=== PATIENT | female | born 1985 | race Asian ===

== ENCOUNTER → 2016-11-16 | Outpatient (CLI) | payer OTHER ==
[~2016-11-16] MED LIST: CALNTAB PO; DOXY10TA PO
[2016-11-16 07:48] LABS: BACTERIA, URINE RARE /hpf; BLOOD, URINE NEG (NEG); COMMENT (UR) CULT NOT INDICATED; CULTURE IF INDICATED CULT NOT INDICATED; GLUCOSE,URINE NEG (NEG); KETONE, URINE NEG (NEG); NITRITE,URINE NEG (NEG); PH, URINE 7.5 (5.0-8.5); SQUAMOUS EPITHELIAL CELL URINE <1 /hpf (0-5); URINE COLOR YELLOW (YELLW/STRAW)
[2016-11-16 07:50] LABS: AUTOMATED NEUTROPHIL # 9.6 TH/MM3 (1.8-7.7); BASOPHIL # 0.1 TH/MM3 (0-0.2); EOSINOPHIL # 0.2 TH/MM3 (0-0.4); EOSINOPHIL % 1.3 % (0.0-4.0); LYMPH % 19.5 % (9.0-44.0); LYMPHOCYTE # 2.6 TH/MM3 (1.0-4.8); MEAN CELL VOLUME 62.3 FL (80.0-100.0); MEAN CORPUSCULAR HEMOGLOBIN 19.7 PG (27.0-34.0); MEAN CORPUSCULAR HGB CONC 31.7 % (32.0-36.0); MONO % 5.1 % (0.0-8.0); NEUT % 73.1 % (16.0-70.0); PLATELET COUNT 300 TH/MM3 (150-450); RED BLOOD COUNT 5.94 MIL/MM3 (4.00-5.30); RED CELL DISTRIBUTION WIDTH 14.8 % (11.6-17.2); WHITE BLOOD COUNT 13.1 TH/MM3 (4.0-11.0)
[2016-11-16 08:11] LABS: HEMO FLAGS AUTO DIFF
[2016-11-16 08:19] LABS: RUBELLA IGG ANTIBODY 91.2 IU/mL (10.0-500.0); RUBELLA STATUS IMMUNE (IMMUNE)
[2016-11-16 09:11] LABS: OVALOCYTES 1+ (NORMAL); PLATELET ESTIMATE SMEAR NORMAL (NORMAL); PLATELET MORPHOLOGY ENLARGED (NORMAL); SCAN/DIFF AUTO DIFF CONFIRMED
[2016-11-16 14:45] LABS: RAPID PLASMA REAGIN SCREEN NON-REACTIVE (NON-REACTVE)
== END ==
LOC: EDBD → CLAB 07:10
PROVIDERS: ATTEND Family Medicine
DX: Z34.90 Encounter for supervision of normal pregnancy, unspecified, unspecified trimester (principal)
CPT/HCPCS: 36415; 81001; 83020; 85025; 86592; 86703; 86762; 86850; 86900; 86901; 87340

== ENCOUNTER → 2016-11-18 | Outpatient (CLI) | payer OTHER | LOC: EDBD → HPND 13:26 | PROVIDERS: ATTEND Family Medicine | DX: Z36 Encounter for antenatal screening of mother (principal); Z3A.09 9 weeks gestation of pregnancy | CPT/HCPCS: 76801 ==

== ENCOUNTER → 2016-12-15 | Outpatient (CLI) | payer OTHER | LOC: HPND 10:45 | PROVIDERS: ATTEND Family Medicine | DX: Z36 Encounter for antenatal screening of mother (principal) | CPT/HCPCS: 36416; 76813 ==

== ENCOUNTER → 2017-01-19 | Outpatient (CLI) | payer OTHER | LOC: HPND 09:35 | PROVIDERS: ATTEND Family Medicine | DX: O28.3 Abnormal ultrasonic finding on antenatal screening of mother (principal); Z3A.18 18 weeks gestation of pregnancy | CPT/HCPCS: 36415; 76811 ==

== ENCOUNTER 2017-06-13 09:54 | Emergency (ER) | payer BC ==
[~2017-06-13 09:54] MED LIST changes: -DOXY10TA PO; +FERR325T72 PO
--- NOTE | 2017-06-13 11:24 | PD ---
HPI Chief Complaint Contractions Date Seen: Jun 13, 2017 Time Seen: 10:45 (Neeraj Bauer MD R2) Travel History International Travel<30 Days: No Contact w/Intl Traveler<30Days: No Known Affected Area: No (Neeraj Bauer MD R2) History of Present Illness HPI 33-year-old at 39 weeks gestation presenting with contractions starting since 3 AM this morning. At that time, there were moderate intensity at about every 5 minutes apart. They have not worsened in intensity or shortened interval , but they have persisted until time of presentation, prompting her to seek care. She denies vaginal bleeding, contractions, leakage of fluid. Endorses movement. Denies chest pain, shortness of breath, dysuria, nausea/ vomiting. Endorses urinary frequency since approximately 38 weeks gestation. Last seen in clinic on 06/03/[address] Lakeisha Peralta; at that time, her cervix was 0/0/-3. (Neeraj Bauer MD R2) History Past Medical History Narrative Medical Migraines N/V of (Neeraj Bauer MD R2) Obstetric History Obstetric History G1 (Neeraj Bauer MD R2) Past Surgical History Surgical History: No Previous Surgery (Neeraj Bauer MD R2) Family History Family History: Negative (Neeraj Bauer MD R2) Social History Alcohol Use: No Tobacco Use: No Substance Abuse: No (Neeraj Bauer MD R2) Allergies-Medications (Allergen,Severity, Reaction): Coded Allergies: No Known Allergies (Unverified , 06/14/17) Home Meds Active Scripts Ferrous Gluconate 325 Mg [id number] Mg PO DAILY #30 TAB Ref 3 Prov:Cleveland Peralta MD R3 05/19/17 Vitamin (Calna)1 Tab Tab1 Tab PO DAILY #30 TAB Ref 11 Take one tab by mouth once daily with food. Prov:Lakeisha Peralta MD R2 11/11/16 Review of Systems Except as stated in HPI: all other systems reviewed are Neg (Neeraj Bauer MD R2) Physical Exam Narrative GENERAL: Well-nourished, well-developed patient. SKIN: Warm and dry. HEAD: Normocephalic and atraumatic. EYES: No scleral icterus. No injection or drainage. ENT: No nasal drainage noted. Mucous membranes pink. Airway patent. CARDIOVASCULAR: Regular rate and rhythm without murmurs, gallops, or rubs. RESPIRATORY: Breath sounds equal bilaterally. No accessory muscle use. ABDOMEN/GI: Abdomen soft, non-tender, no rebound, no guarding GENITOURINARY: Cervix: posterior Dilation: 1 Effacement: 80 Presentation: -2 Membranes: intact Contractions: irregular every 3-7 mins FHT's: Category: 1 Baseline: 130 Reactive: Y Variability: moderate Decels: N EXTREMITIES: No cyanosis or edema. NEUROLOGICAL: Awake and alert. Motor and sensory grossly within normal limits. Normal speech. (Neeraj Bauer MD R2) Data Data Orders Vital Signs (Adult) .ON ADMISSION (06/13/17 10:41) ^ Labor Status (06/13/17 10:41) ^ Non Stress Test (06/13/17 10:41) ^ Hydration (06/13/17 10:41) (Neeraj Bauer MD R2) MDM Medical Record Reviewed: Yes Narrative Course / MDM 33-year-old at 39 weeks gestation presenting with false labor #1 IUP Category 1 tracing, reassuring #2 GBS positive #3 false labor after 37 complete weeks gestation Adry regularly on monitor, but has not made any cervical change. Pain not severe according to patient. Could be very early labor or false labor - Tylenol as needed for pain - Counseling on early labor signs and when to return to the ER #4 elevated blood pressure reading Initial blood pressures in OB ER were in the 150s over 90s. Came down spontaneously to 130s over 70s to 80s. - Patient instructed to contact [facility] for follow-up in 48 hours either with nurse visit or physician appointment dw Dr. Musa (Neeraj Bauer MD R2) Diagnosis Diagnosis: Primary Impression: False labor after 37 completed weeks of gestation Disposition: 01 DISCHARGE HOME Condition: Good Patient Instructions: Early Labor Signs (ED) Collaborating MD Comments Patient was evaluated and discussed with resident team. Latent labor, patient will return with worsening contractions. (Bhargavi Musa MD) Neeraj Bauer MD R2 Jun 13, 2017 11:24 Bhargavi Musa MD Jun 15, 2017 10:49
[2017-06-13 12:28] LABS: BACTERIA, URINE RARE /hpf; BLOOD, URINE NEG (NEG); COMMENT (UR) CULT NOT INDICATED; CULTURE IF INDICATED CULT NOT INDICATED; GLUCOSE,URINE NEG (NEG); KETONE, URINE NEG (NEG); NITRITE,URINE NEG (NEG); PH, URINE 6.5 (5.0-8.5); SQUAMOUS EPITHELIAL CELL URINE 1 /hpf (0-5); URINE COLOR YELLOW (YELLW/STRAW)
== END 2017-06-13 11:45 | disposition home or self-care (01) ==
LOC: HOBED 09:54
DX: O47.1 False labor at or after 37 completed weeks of gestation (principal); Z3A.39 39 weeks gestation of pregnancy
CPT/HCPCS: 59025; 81001

== ENCOUNTER 2017-06-14 07:59 | Inpatient (IN) | payer BC ==
[2017-06-14] VITALS (105 sets, daily range): BP systolic 110–165; BP diastolic 43–106; PULSE 67–107; RESP 18–20; TEMP 98–99.4
[2017-06-14] MEDS ORDERED: LACTATED RINGER'S 1000 ML INJ 1,000 ML IV PRN (08:59)
[2017-06-14] MEDS ORDERED: ONDANSETRON HCL 4 MG/2 ML VIAL IV PRN (09:00)
[2017-06-14] MEDS ORDERED: OXYTOCIN 30 UNITS-500ML PREMIX 500 ML IV ONE (09:00)
[2017-06-14] MEDS ORDERED: MINERAL OIL 10 ML VIAL TOPICAL PRN (09:00)
[2017-06-14] MEDS ORDERED: LIDOCAINE HCL 1% 50 ML VIAL I-DERMAL PRN (09:00)
[2017-06-14] MEDS ORDERED: SODIUM CHLORID 0.9% 500 ML INJ 500 ML IV PRN (09:00)
[2017-06-14] MEDS ORDERED: PENICILLIN G POTASSIUM INJ 5,000,000 UNITS in SODIUM CHLORIDE 0.9% INJ 100 ML IV ONE (09:00)
[2017-06-14] MEDS ORDERED: CITRIC ACID-SODIUM CITRATE LIQ 30 ML UDC PO SCH (09:00)
[2017-06-14] MEDS ORDERED: LIDOCAINE HCL 1% 50 ML VIAL INFIL PRN (09:00)
--- NOTE | 2017-06-14 09:12 | PD ---
HPI Chief Complaint Contractions Date Seen: Jun 14, 2017 Time Seen: 08:45 (Sung Yoder MD R1) Travel History International Travel<30 Days: No Contact w/Intl Traveler<30Days: No (Sung Yoder MD R1) History of Present Illness HPI 33 year old at 39 and 1/7 weeks who came in complaining of intermittent contractions for the past 2 days. The contractions have increased in intensity and frequency, currently occurring every 3-4 minutes. States there is normal baby movement. She denies leakage of fluid and vaginal bleeding. She denies fevers, chills, n/v, headaches, blurry vision, chest pain, abdominal pain. Para: 0 : 1 (Sung Yoder MD R1) History Past Medical History Medical History: Denies Significant Hx (Sung Yoder MD) Past Surgical History Surgical History: No Previous Surgery (Sung Yoder MD) Allergies-Medications (Allergen,Severity, Reaction): Coded Allergies: No Known Allergies (Unverified , 06/14/17) Home Meds Active Scripts Ferrous Gluconate 325 Mg [id number] Mg PO DAILY #30 TAB Ref 3 Prov:Cleveland Peralta MD R3 05/19/17 Vitamin (Calna)1 Tab Tab1 Tab PO DAILY #30 TAB Ref 11 Take one tab by mouth once daily with food. Prov:Lakeisha Peralta MD R2 11/11/16 Review of Systems General / Constitutional: No: Fever, Chills Eyes: No: Blurred Vision, Visual changes, Pain HENT: No: Headaches, Vertigo Cardiovascular: No: Chest Pain or Discomfort, Palpitations Respiratory: No: Cough, Short of Breath, Wheezing Gastrointestinal: No: Nausea, Vomiting, Diarrhea, Abdominal Pain Genitourinary: No: Dysuria, Hematuria Musculoskeletal: No: Weakness, Pain Skin: No Rash, No Itching Neurologic: No: Weakness, Dizziness Psychiatric: No: Anxiety, Depression (Sung Yoder MD R1) Physical Exam Narrative GENERAL: Well-nourished, well-developed patient. SKIN: Warm and dry. HEAD: Normocephalic and atraumatic. EYES: No scleral icterus. No injection or drainage. ENT: No nasal drainage noted. Mucous membranes pink. Airway patent. NECK: Supple, trachea midline. No JVD. CARDIOVASCULAR: Regular rate and rhythm without murmurs, gallops, or rubs. RESPIRATORY: Breath sounds equal bilaterally. No accessory muscle use. ABDOMEN/GI: Abdomen soft, non-tender, bowel sounds present, no rebound, no guarding GENITOURINARY: External Genitalia: intact and normal in appearance Cervix: Posterior Dilatation: 4 Effacement: 80 Station: -2 Membranes: Intact Uterine Contractions: 3-4 minutes FHT's: Category: 1 Baseline: 145 Reactive: Y Variability: moderate Decels: N EXTREMITIES: No cyanosis or edema. BACK: Nontender without obvious deformity. No CVA tenderness. NEUROLOGICAL: Awake and alert. Motor and sensory grossly within normal limits. Five out of 5 muscle strength in all muscle groups. Normal speech. (Sung Yoder MD R1) Data Data Orders Vital Signs (Adult) .ON ADMISSION (06/14/17 08:59) ^ Labor Status (06/14/17 08:59) ^ Non Stress Test (06/14/17 08:59) ^ Hydration (06/14/17 08:59) Admit To Inpatient (06/14/17 ) Code Status (06/14/17 08:59) Vital Signs (Adult) .Per protocol (06/14/17 08:59) Activity Oob Ad Kerry (06/14/17 08:59) Heart (06/14/17 08:59) Amnioinfusion (06/14/17 08:59) Urinary Catheter Management .ONCE (06/14/17 08:59) Diet Liquid (06/14/17 Breakfast) Lactated Ringer's 1000 Ml Inj (Lr 1000 M (06/14/17 08:59) Lactated Ringer's 1000 Ml Inj (Lr 1000 M (06/14/17 08:59) Sodium Chlorid 0.9% 500 Ml Inj (Ns 500 M (06/14/17 09:00) Sodium Chlor 0.9% 1000 Ml Inj (Ns 1000 M (06/14/17 09:19) Lidocaine 1% Inj (50 Ml) (Xylocaine 1% I (06/14/17 09:00) Citric Acid-Sodium Citrate Liq (Bicitra (06/14/17 09:00) Ondansetron Inj (Zofran Inj) (06/14/17 09:00) Fentanyl Inj (Fentanyl Inj) (06/14/17 09:00) Fentanyl Inj (Fentanyl Inj) (06/14/17 09:00) Penicillin G Potassium Inj (Pfizerpen-G (06/14/17 09:00) Penicillin G Potassium Inj (Pfizerpen-G (06/14/17 13:00) Complete Blood Count With Diff (06/14/17 08:59) Hold Clot (06/14/17 08:59) Abo/Rh Blood Type (06/14/17 08:59) Urinalysis - C+S If Indicated (06/14/17 08:59) Resp Oxygen Non Rebreathe Mask (06/14/17 ) ^ Epidural / Intrathecal Infus (06/14/17 08:59) Oxytocin 30 Units-500ml Premix (Pitocin (06/14/17 09:00) Lidocaine 1% Inj (50 Ml) (Xylocaine 1% I (06/14/17 09:00) Light Mineral Oil (Muri-Lube Oil) (06/14/17 09:00) Inpatient Certification (06/14/17 ) Ob (2e) Additional Admit Info (06/14/17 09:01) (Sung Yoder MD R1) MDM Narrative Course / MDM 33 year old who presented with increasing contraction strength and frequency Contractions during /Labor - Expectant delivery, Category 1 tracing reassuring GBS + - Penicillin per protocol (Sung Yoder MD R1) Collaborating MD Comments Discussed patient care, management, and admission for labor. (Bhargavi Musa MD) Sung Yoder MD R1 Jun 14, 2017 09:12 Bhargavi Musa MD Jun 15, 2017 11:06
[2017-06-14] MEDS ORDERED: SODIUM CHLOR 0.9% 1000 ML INJ 1,000 ML IV PRN (09:19)
[2017-06-14] MEDS: LACTATED RINGER'S 1000 ML INJ 1,000 ML IV SCH ×3 (09:22→16:31)
[2017-06-14 09:38] LABS: AUTOMATED NEUTROPHIL # 10.7 TH/MM3 (1.8-7.7); BASOPHIL # 0.1 TH/MM3 (0-0.2); BASOPHIL % 0.9 % (0.0-2.0); EOSINOPHIL # 0.2 TH/MM3 (0-0.4); EOSINOPHIL % 1.2 % (0.0-4.0); HEMATOCRIT 37.5 % (35.0-46.0); LYMPH % 18.4 % (9.0-44.0); LYMPHOCYTE # 2.7 TH/MM3 (1.0-4.8); MEAN CELL VOLUME 66.7 FL (80.0-100.0); MEAN CORPUSCULAR HEMOGLOBIN 20.7 PG (27.0-34.0); MONO % 6.3 % (0.0-8.0); NEUT % 73.2 % (16.0-70.0); PLATELET COUNT 128 TH/MM3 (150-450); RED BLOOD COUNT 5.62 MIL/MM3 (4.00-5.30); RED CELL DISTRIBUTION WIDTH 15.9 % (11.6-17.2); WHITE BLOOD COUNT 14.7 TH/MM3 (4.0-11.0)
[2017-06-14 09:47] LABS: BLOOD, URINE NEG (NEG); COMMENT (UR) CULT NOT INDICATED; CULTURE IF INDICATED CULT NOT INDICATED; GLUCOSE,URINE NEG (NEG); KETONE, URINE NEG (NEG); NITRITE,URINE NEG (NEG); PH, URINE 6.5 (5.0-8.5); SQUAMOUS EPITHELIAL CELL URINE 4 /hpf (0-5); URINE COLOR YELLOW (YELLW/STRAW)
[2017-06-14 10:16] LABS: HEMO FLAGS AUTO DIFF
[2017-06-14 10:19] LABS: OVALOCYTES 1+ (NORMAL)
[2017-06-14 10:20] LABS: PLATELET ESTIMATE SMEAR LOW (NORMAL); PLATELET MORPHOLOGY ENLARGED (NORMAL); SCAN/DIFF AUTO DIFF CONFIRMED
--- NOTE | 2017-06-14 10:46 | HHI.HP ---
History & Physical H&P HPI HPI Chief Complaint Contractions Date Seen: Jun 14, 2017 Time Seen: 08:45 Travel History International Travel<30 Days: No Contact w/Intl Traveler<30Days: No History of Present Illness HPI 33 year old at 39 and 1/7 weeks who came in complaining of intermittent contractions for the past 2 days. The contractions have increased in intensity and frequency, currently occurring every 3-4 minutes. States there is normal baby movement. She denies leakage of fluid and vaginal bleeding. She denies fevers, chills, n/v, headaches, blurry vision, chest pain, abdominal pain. Para: 0 : 1 History (Limited) History Past Medical History Medical History: Denies Significant Hx Past Surgical History Surgical History: No Previous Surgery Allergies-Medications Allergies-Medications (Allergen,Severity, Reaction): Coded Allergies: No Known Allergies (Unverified , 06/14/17) Home Meds Active Scripts Ferrous Gluconate 325 Mg [id number] Mg PO DAILY #30 TAB Ref 3 Prov:Cleveland Peralta MD R3 05/19/17 Vitamin (Calna)1 Tab Tab1 Tab PO DAILY #30 TAB Ref 11 Take one tab by mouth once daily with food. Prov:Lakeisha Peralta MD R2 11/11/16 ROS Review of Systems General / Constitutional: No: Fever, Chills Eyes: No: Blurred Vision, Visual changes, Pain HENT: No: Headaches, Vertigo Cardiovascular: No: Chest Pain or Discomfort, Palpitations Respiratory: No: Cough, Short of Breath, Wheezing Gastrointestinal: No: Nausea, Vomiting, Diarrhea, Abdominal Pain Genitourinary: No: Dysuria, Hematuria Musculoskeletal: No: Weakness, Pain Skin: No Rash, No Itching Neurologic: No: Weakness, Dizziness Psychiatric: No: Anxiety, Depression Physical Exam Physical Exam Narrative GENERAL: Well-nourished, well-developed patient. SKIN: Warm and dry. HEAD: Normocephalic and atraumatic. EYES: No scleral icterus. No injection or drainage. ENT: No nasal drainage noted. Mucous membranes pink. Airway patent. NECK: Supple, trachea midline. No JVD. CARDIOVASCULAR: Regular rate and rhythm without murmurs, gallops, or rubs. RESPIRATORY: Breath sounds equal bilaterally. No accessory muscle use. ABDOMEN/GI: Abdomen soft, non-tender, bowel sounds present, no rebound, no guarding GENITOURINARY: External Genitalia: intact and normal in appearance Cervix: Posterior Dilatation: 4 Effacement: 80 Station: -2 Membranes: Intact Uterine Contractions: 3-4 minutes FHT's: Category: 1 Baseline: 145 Reactive: Y Variability: moderate Decels: N EXTREMITIES: No cyanosis or edema. BACK: Nontender without obvious deformity. No CVA tenderness. NEUROLOGICAL: Awake and alert. Motor and sensory grossly within normal limits. Five out of 5 muscle strength in all muscle groups. Normal speech. Data Data Data Orders Vital Signs (Adult) .ON ADMISSION (06/14/17 08:59) ^ Labor Status (06/14/17 08:59) ^ Non Stress Test (06/14/17 08:59) ^ Hydration (06/14/17 08:59) Admit To Inpatient (06/14/17 ) Code Status (06/14/17 08:59) Vital Signs (Adult) .Per protocol (06/14/17 08:59) Activity Oob Ad Kerry (06/14/17 08:59) Heart (06/14/17 08:59) Amnioinfusion (06/14/17 08:59) Urinary Catheter Management .ONCE (06/14/17 08:59) Diet Liquid (06/14/17 Breakfast) Lactated Ringer's 1000 Ml Inj (Lr 1000 M (06/14/17 08:59) Lactated Ringer's 1000 Ml Inj (Lr 1000 M (06/14/17 08:59) Sodium Chlorid 0.9% 500 Ml Inj (Ns 500 M (06/14/17 09:00) Sodium Chlor 0.9% 1000 Ml Inj (Ns 1000 M (06/14/17 09:19) Lidocaine 1% Inj (50 Ml) (Xylocaine 1% I (06/14/17 09:00) Citric Acid-Sodium Citrate Liq (Bicitra (06/14/17 09:00) Ondansetron Inj (Zofran Inj) (06/14/17 09:00) Fentanyl Inj (Fentanyl Inj) (06/14/17 09:00) Fentanyl Inj (Fentanyl Inj) (06/14/17 09:00) Penicillin G Potassium Inj (Pfizerpen-G (06/14/17 09:00) Penicillin G Potassium Inj (Pfizerpen-G (06/14/17 13:00) Complete Blood Count With Diff (06/14/17 08:59) Hold Clot (06/14/17 08:59) Abo/Rh Blood Type (06/14/17 08:59) Urinalysis - C+S If Indicated (06/14/17 08:59) Resp Oxygen Non Rebreathe Mask (06/14/17 ) ^ Epidural / Intrathecal Infus (06/14/17 08:59) Oxytocin 30 Units-500ml Premix (Pitocin (06/14/17 09:00) Lidocaine 1% Inj (50 Ml) (Xylocaine 1% I (06/14/17 09:00) Light Mineral Oil (Muri-Lube Oil) (06/14/17 09:00) Inpatient Certification (06/14/17 ) Ob (2e) Additional Admit Info (06/14/17 09:01) MDM MDM Narrative Course / MDM 33 year old who presented with increasing contraction strength and frequency Contractions during /Labor - Expectant delivery, Category 1 tracing reassuring GBS + - Penicillin per protocol Sung Yoder MD R1 Jun 14, 2017 10:46 Uterine contractions during Additional Impression: Group B streptococcal infection during Sung Yoder MD R1 Jun 14, 2017 10:46
--- NOTE | 2017-06-14 11:05 | PD.LABORPN ---
Subjective Subjective Patient feeling contractions every 3-4 minutes, pain controlled now with Fentanyl, will want epidural. Intact membranes at this time. Cat 1 tracing, SBP 140s. No concerns for patient or her . Objective Vital Signs Vital Signs Date Time Temp Pulse Resp B/P Pulse Ox O2 Delivery O2 Flow Rate FiO2 06/14/17 09:35 76 18 156/93 06/14/17 09:31 77 Objective Pelvic Exam: Cervix: 4-5cm/90/0 Presentation: vertex Membranes: AROM @ 1041 lightly meconium stained fluid Uterine Contractions: q3min FHT's: Category: 1 Baseline:140s Reactive: 160 Variability: mod Decels: absent Assessment/Plan Problem List: (1) Group B streptococcal infection during (2) with 39 completed weeks gestation Assessment and Plan 33-year-old at 39 and 1/7 weeks gestation who presents to the ED in labor. Intrauterine : Expect vaginal delivery, Category 1 tracing reassuring AROM 1041 today, light meconium stained CTX spontaneously at this time, will monitor, start Pitocin with goal CTX approx q 3 min Fentanyl IV/epidural for pain CBC, UA within normal limits. Type and screen done labs reviewed, remarkable for GBS POSITIVE. Routine intrapartum care Monitor heart tones Thickened nuchal fold Last documented december 2016, did not get recommended f/u echo/US due to insurance issues Cell free DNA showed no increased risk of Trisomy 21, 18, 13 Patient did not get amniocentesis for confirmation monitoring reassuring at this time, will monitor Baby may require Echo if initial physical exam abnormal GBS POSITIVE: PCN G per protocol Lakeisha Peralta MD R2 Jun 14, 2017 11:05
[2017-06-14] MEDS ORDERED: OXYTOCIN 30 UNITS-500ML PREMIX 500 ML IV SCH (11:15)
[2017-06-14] MEDS ORDERED: fentaNYL 2MCG-BUPIV 0.125% INJ 100 ML ONE (12:17)
[2017-06-14] MEDS: PENICILLIN G POTASSIUM INJ 2,500,000 UNITS in SODIUM CHLORIDE 0.9% INJ 100 ML IV SCH ×3 (13:25→22:10)
[2017-06-14] MEDS ORDERED: DO NOT ADMINISTER ANTICOAGULANTS PRN (13:30)
[2017-06-14] MEDS ORDERED: ePHEDrine/NS 25 MG/5 ML SYR IV PRN (13:30)
[2017-06-14] MEDS ORDERED: fentaNYL 2MCG-BUPIV 0.125% 100 ML EPIDURAL SCH (13:30)
[2017-06-14] MEDS ORDERED: NO SYSTEM NARCOTICS PRN (13:30)
--- NOTE | 2017-06-14 15:59 | PD.LABORPN ---
Subjective Subjective Patient resting comfortably, had epidural placed. PCN #2 was given. No concerns reported per FOB who is at bedside. Pit at 4 Objective Vital Signs Vital Signs Date Time Temp Pulse Resp B/P Pulse Ox O2 Delivery O2 Flow Rate FiO2 06/14/17 15:45 18 06/14/17 15:40 95 06/14/17 15:35 83 06/14/17 15:30 84 114/80 06/14/17 15:30 94 06/14/17 15:15 98.5 06/14/17 15:15 18 06/14/17 15:10 91 06/14/17 15:05 95 06/14/17 15:00 90 133/88 06/14/17 15:00 90 06/14/17 14:45 99 06/14/17 14:40 79 06/14/17 14:35 89 06/14/17 14:30 95 06/14/17 14:30 79 114/74 06/14/17 14:29 78 128/80 06/14/17 14:28 18 06/14/17 14:25 82 06/14/17 14:20 84 06/14/17 14:15 87 06/14/17 14:10 90 06/14/17 14:05 78 06/14/17 14:00 74 134/97 06/14/17 14:00 75 06/14/17 13:55 76 06/14/17 13:50 76 06/14/17 13:45 86 139/87 06/14/17 13:45 78 06/14/17 13:40 71 06/14/17 13:35 69 06/14/17 13:30 70 06/14/17 13:30 73 144/92 06/14/17 13:25 80 06/14/17 13:25 18 06/14/17 13:21 98.1 06/14/17 13:21 18 06/14/17 13:20 72 06/14/17 13:15 77 06/14/17 13:15 76 139/93 06/14/17 13:10 73 06/14/17 13:05 78 06/14/17 13:05 75 136/89 06/14/17 13:00 80 06/14/17 13:00 77 138/90 06/14/17 12:55 75 149/90 06/14/17 12:55 78 06/14/17 12:55 18 06/14/17 12:50 83 06/14/17 12:50 84 148/87 06/14/17 12:45 80 152/102 06/14/17 12:40 85 139/90 06/14/17 12:40 83 06/14/17 12:35 89 162/103 06/14/17 12:35 88 06/14/17 12:30 87 06/14/17 12:27 81 165/96 06/14/17 12:25 91 06/14/17 11:58 76 149/91 06/14/17 11:57 19 06/14/17 11:35 18 06/14/17 11:34 74 155/74 06/14/17 11:33 98.0 06/14/17 10:45 18 06/14/17 10:36 67 147/85 06/14/17 09:35 76 18 156/93 06/14/17 09:31 77 Objective Pelvic Exam @ 1540 Cervix: 6/80/-1 Presentation: vertex Membranes: AROM @ 1041 lightly meconium stained fluid Uterine Contractions: q3min FHT's: Category: 1 Baseline:140s Reactive: 160 Variability: mod Decels: absent Assessment/Plan Problem List: (1) Group B streptococcal infection during (2) with 39 completed weeks gestation Assessment and Plan Intrauterine : Expect vaginal delivery, Category 1 tracing reassuring AROM 1041 today, light meconium stained CTX q2-3 min now Cervix changing slowing, last check ~4pm will recheck if indication or in 2hr Pitocin at 12/03/29, titrate to goal CTX approx q 2-3 min Epidural for pain CBC, UA within normal limits. Type and screen done labs reviewed, remarkable for GBS POSITIVE. Routine intrapartum care Monitor heart tones Thickened nuchal fold: Last documented December 2016, did not get recommended f/u echo/US due to insurance issues Cell free DNA showed no increased risk of Trisomy 21, 18, 13 Patient did not get amniocentesis for confirmation monitoring reassuring at this time, will monitor Baby may require 2D Echo if initial physical exam/VS abnormal GBS POSITIVE: PCN G per protocol, first dose at 0922 today Lakeisha Peralta MD R2 Jun 14, 2017 15:59
--- NOTE | 2017-06-14 17:54 | PD.LABORPN ---
Subjective Subjective Patient is feeling uncomfortable with contractions and feeling pressure in the lower abdomen. She has no other complaints. Pit still going, now at 8 Objective Vital Signs Vital Signs Date Time Temp Pulse Resp B/P Pulse Ox O2 Delivery O2 Flow Rate FiO2 06/14/17 17:10 91 06/14/17 17:05 93 06/14/17 17:00 92 142/84 06/14/17 17:00 93 06/14/17 16:37 98.5 06/14/17 16:35 130/82 06/14/17 16:15 18 06/14/17 16:10 91 06/14/17 16:05 91 06/14/17 16:01 85 143/97 06/14/17 16:00 95 06/14/17 15:45 18 06/14/17 15:40 95 06/14/17 15:35 83 06/14/17 15:30 84 114/80 06/14/17 15:30 94 06/14/17 15:15 98.5 06/14/17 15:15 18 06/14/17 15:10 91 06/14/17 15:05 95 06/14/17 15:00 90 133/88 06/14/17 15:00 90 06/14/17 14:45 99 06/14/17 14:40 79 06/14/17 14:35 89 06/14/17 14:30 95 06/14/17 14:30 79 114/74 06/14/17 14:29 78 128/80 06/14/17 14:28 18 06/14/17 14:25 82 06/14/17 14:20 84 06/14/17 14:15 87 06/14/17 14:10 90 06/14/17 14:05 78 06/14/17 14:00 74 134/97 06/14/17 14:00 75 06/14/17 13:55 76 06/14/17 13:50 76 06/14/17 13:45 86 139/87 06/14/17 13:45 78 06/14/17 13:40 71 06/14/17 13:35 69 06/14/17 13:30 70 06/14/17 13:30 73 144/92 06/14/17 13:25 80 06/14/17 13:25 18 06/14/17 13:21 98.1 06/14/17 13:21 18 06/14/17 13:20 72 06/14/17 13:15 77 06/14/17 13:15 76 139/93 06/14/17 13:10 73 06/14/17 13:05 78 06/14/17 13:05 75 136/89 06/14/17 13:00 80 06/14/17 13:00 77 138/90 06/14/17 12:55 75 149/90 06/14/17 12:55 78 06/14/17 12:55 18 06/14/17 12:50 83 06/14/17 12:50 84 148/87 06/14/17 12:45 80 152/102 06/14/17 12:40 85 139/90 06/14/17 12:40 83 06/14/17 12:35 89 162/103 06/14/17 12:35 88 06/14/17 12:30 87 06/14/17 12:27 81 165/96 06/14/17 12:25 91 06/14/17 11:58 76 149/91 06/14/17 11:57 19 06/14/17 11:35 18 06/14/17 11:34 74 155/74 06/14/17 11:33 98.0 06/14/17 10:45 18 06/14/17 10:36 67 147/85 Objective Pelvic Exam @ 1545: Cervix: 7/90/0 Presentation: vertex, caput noted Membranes: AROM @ 1041 lightly meconium stained fluid Uterine Contractions: q3min FHT's: Category: 1 Baseline:150s Reactive: 160 Variability: mod Decels: one variable noted during repositioning Assessment/Plan Problem List: (1) Group B streptococcal infection during (2) with 39 completed weeks gestation Assessment and Plan 33year in labor. Concern for inadequate contractions. BPs noted to be 140s/ 90s or 140s/100s over labor period. Elevated BPs: Possibly related to pain VS otherwise wnl including temp CBC showing mild thrombocytopenia, otherwise unremarkable Urine showing trace protein Will order CMP and uric acid Intrauterine : Expect vaginal delivery, Category 1 tracing reassuring AROM 1041 today, light meconium stained CTX q2-3 min now, IUPC placed for quantitative monitoring Cervix 7/90/0 Pitocin at 2/2/30 protocol, titrate to goal CTX approx q 2-3 min with goal MVU 200-300 Epidural for pain CBC, UA within normal limits. Type and screen done labs reviewed, remarkable for GBS POSITIVE. Routine intrapartum care Monitor heart tones Thickened nuchal fold: Last documented December 2016, did not get recommended f/u echo/US due to insurance issues Cell free DNA showed no increased risk of Trisomy 21, 18, 13 Patient did not get amniocentesis for confirmation monitoring reassuring at this time, will monitor Baby may require 2D Echo if initial physical exam/VS abnormal GBS POSITIVE: Penicillin G per protocol, first dose at 0922 today, getting third dose now Lakeisha Peralta MD R2 Jun 14, 2017 17:54
[2017-06-14 18:58] LABS: ALT (GPT) 16 U/L (10-53); ANION GAP 10 MEQ/L (5-15); AST (GOT) 20 U/L (15-37); BICARBONATE 22.8 MEQ/L (21.0-32.0); BLOOD UREA NITROGEN 8 MG/DL (7-18); CHLORIDE 104 MEQ/L (98-107); GLOMERULAR FILTRATION RATE 78 ML/MIN (>89); POTASSIUM 3.8 MEQ/L (3.5-5.1); SODIUM (NA) 137 MEQ/L (136-145); URIC ACID 7.4 MG/DL (2.6-6.0)
[2017-06-14 19:01] LABS: ALKALINE PHOSPHATASE 153 U/L (45-117); TOTAL BILIRUBIN ADULT 0.4 MG/DL (0.2-1.0)
--- NOTE | 2017-06-14 19:42 | PD.LABORPN ---
Subjective Subjective Family present at bedside. Pt pain not currently controlled with epidural. She endorses pressure as well as pain in her lower back. She denies headaches, vision changes, RUQ discomfort. BP 140-150s/90-100s. Objective Vital Signs Vital Signs Date Time Temp Pulse Resp B/P Pulse Ox O2 Delivery O2 Flow Rate FiO2 06/14/17 19:30 99 146/103 06/14/17 19:30 104 06/14/17 19:00 91 06/14/17 19:00 93 151/94 06/14/17 18:55 96 06/14/17 18:50 98 06/14/17 18:45 102 06/14/17 18:45 99.4 18 06/14/17 18:40 94 06/14/17 18:35 99 06/14/17 18:30 92 06/14/17 18:30 92 153/96 06/14/17 18:25 95 06/14/17 18:20 100 06/14/17 18:15 107 06/14/17 18:10 100 06/14/17 18:05 100 06/14/17 18:00 92 06/14/17 17:55 89 06/14/17 17:50 90 06/14/17 17:45 91 06/14/17 17:41 98.7 06/14/17 17:40 20 06/14/17 17:40 99 06/14/17 17:39 107 06/14/17 17:39 140/96 06/14/17 17:35 93 06/14/17 17:30 98 06/14/17 17:30 145/100 06/14/17 17:30 99 06/14/17 17:25 92 06/14/17 17:20 94 06/14/17 17:15 93 06/14/17 17:10 91 06/14/17 17:05 93 06/14/17 17:00 92 142/84 06/14/17 17:00 93 06/14/17 16:37 98.5 06/14/17 16:35 130/82 06/14/17 16:15 18 06/14/17 16:10 91 06/14/17 16:05 91 06/14/17 16:01 85 143/97 06/14/17 16:00 95 8/14/17 15:45 18 8/14/17 15:40 95 14/17 15:35 83 14/17 15:30 84 114/80 14/17 15:30 94 14/17 15:15 98.5 14/17 15:15 18 14/17 15:10 91 1417 15:05 95 14/17 15:00 90 133/88 14/17 15:00 90 1417 14:45 99 1417 14:40 79 1417 14:35 89 1417 14:30 95 1417 14:30 79 114/74 14/17 14:29 78 128/80 1417 14:28 18 1417 14:25 82 1417 14:20 84 1417 14:15 87 14 14:10 90 06/14/17 14:05 78 14 14:00 74 134/97 14 14:00 75 1417 13:55 76 14/17 13:50 76 14/17 13:45 86 139/87 14/17 13:45 78 14/17 13:40 71 14/17 13:35 69 14/17 13:30 70 14/17 13:30 73 144/92 14/17 13:25 80 14/17 13:25 18 14/17 13:21 98.1 1417 13:21 18 1417 13:20 72 14/17 13:15 77 14/17 13:15 76 139/93 14/17 13:10 73 14/17 13:05 78 14/17 13:05 75 136/89 1417 13:00 80 1417 13:00 77 138/90 14/17 12:55 75 149/90 14/17 12:55 78 14/17 12:55 18 14/17 12:50 83 14/17 12:50 84 148/87 14/17 12:45 80 152/102 8/14/17 12:40 85 139/90 06/14/17 12:40 83 06/14/17 12:35 89 162/103 06/14/17 12:35 88 06/14/17 12:30 87 06/14/17 12:27 81 165/96 06/14/17 12:25 91 06/14/17 11:58 76 149/91 06/14/17 11:57 19 Objective Pelvic Exam: Cervix: soft Dilatation: 8cm Effacement: 90% Station: 0 Presentation:vertex Membranes: Ruptured Uterine Contractions: Q1-4minutes FHT's: Category: 1 Baseline: 155 Reactive: + Variability: Moderate Decels: Absent Assessment/Plan Problem List: (1) Group B streptococcal infection during (2) with 39 completed weeks gestation Assessment and Plan Assessment and Plan 33year in labor. Elevated BPs: BP 140-150s/90-100s. Possibly related to pain VS otherwise wnl including temp Uric acid mildly elevated to 7.4, platelets 128 Urine showing trace protein Intrauterine : Expect vaginal delivery, Category 1 tracing reassuring AROM 1041 today, light meconium stained CTX q1-4 min now, IUPC in place Epidural for pain Routine intrapartum care Monitor heart tones Thickened nuchal fold: Last documented December 2016, did not get recommended f/u echo/US due to insurance issues Cell free DNA showed no increased risk of Trisomy 21, 18, 13 Patient declined amniocentesis for confirmation monitoring reassuring at this time, will monitor Baby may require 2D Echo if initial physical exam/VS abnormal GBS POSITIVE: Penicillin G per protocol, first dose at 0922 today, 3 doses completed WDW Cleveland Robbins MD R3 Jun 14, 2017 19:42 Cleveland Peralta MD R3 Jun 14, 2017 19:42
--- NOTE | 2017-06-14 23:31 | PD.LABORPN ---
Subjective Subjective Patient still feeling pressure. More comfortable after epidural was re- adjusted. She has no other concerns. Objective Vital Signs Vital Signs Date Time Temp Pulse Resp B/P Pulse Ox O2 Delivery O2 Flow Rate FiO2 06/14/17 22:30 91 134/86 06/14/17 22:30 89 06/14/17 22:15 98.6 18 06/14/17 22:10 97 06/14/17 22:05 100 06/14/17 22:00 93 110/43 06/14/17 22:00 91 06/14/17 21:35 89 06/14/17 21:30 87 06/14/17 21:30 87 130/79 06/14/17 21:10 88 06/14/17 21:05 85 06/14/17 21:00 86 06/14/17 21:00 96 149/94 06/14/17 20:40 97 06/14/17 20:35 88 06/14/17 20:30 93 142/106 06/14/17 20:30 99 06/14/17 20:05 91 06/14/17 20:00 86 140/105 06/14/17 20:00 94 06/14/17 19:30 99 146/103 06/14/17 19:30 104 06/14/17 19:00 91 06/14/17 19:00 93 151/94 06/14/17 18:55 96 06/14/17 18:50 98 06/14/17 18:45 102 06/14/17 18:45 99.4 18 06/14/17 18:40 94 06/14/17 18:35 99 06/14/17 18:30 92 06/14/17 18:30 92 153/96 06/14/17 18:25 95 06/14/17 18:20 100 06/14/17 18:15 107 06/14/17 18:10 100 06/14/17 18:05 100 06/14/17 18:00 92 06/14/17 17:55 89 06/14/17 17:50 90 06/14/17 17:45 91 06/14/17 17:41 98.7 06/14/17 17:40 20 06/14/17 17:40 99 06/14/17 17:39 107 06/14/17 17:39 140/96 06/14/17 17:35 93 06/14/17 17:30 98 06/14/17 17:30 145/100 06/14/17 17:30 99 06/14/17 17:25 92 06/14/17 17:20 94 06/14/17 17:15 93 06/14/17 17:10 91 06/14/17 17:05 93 06/14/17 17:00 92 142/84 06/14/17 17:00 93 06/14/17 16:37 98.5 06/14/17 16:35 130/82 06/14/17 16:15 18 06/14/17 16:10 91 06/14/17 16:05 91 06/14/17 16:01 85 143/97 06/14/17 16:00 95 06/14/17 15:45 18 06/14/17 15:40 95 06/14/17 15:35 83 06/14/17 15:30 84 114/80 06/14/17 15:30 94 Objective Pelvic Exam: Cervix: soft Dilatation: 8cm Effacement: 90% Station: 0 to +1 Presentation: vertex Membranes: Ruptured Uterine Contractions: Q1-4minutes FHT's: Category: 1 Baseline: 150s Reactive: + to 160 Variability: Moderate Decels: Absent Assessment/Plan Problem List: (1) Group B streptococcal infection during (2) with 39 completed weeks gestation Assessment and Plan 33 year in labor, making minimal cervical spinning frame changer 3 hr. Will continue to monitor for 1 hr, if no progress patient counseled on needing to go to section. Elevated BPs: Improved. Now SBP 110s-140s. Possibly related to pain as pain now is controlled better VS otherwise wnl including temp Uric acid mildly elevated to 7.4, platelets 128 - not diagnostic of pre-E Urine showing trace protein, reassuring Intrauterine : Expect vaginal delivery, Category 1 tracing reassuring AROM 1041 on 06/14/2017, light meconium stained CTX q1-4 min now, IUPC in place Epidural for pain Routine intrapartum care Monitor heart tones Thickened nuchal fold: Last documented December 2016, did not get recommended f/u echo/US due to insurance issues Cell free DNA showed no increased risk of Trisomy 21, 18, 13 Patient declined amniocentesis for confirmation monitoring reassuring at this time, will monitor Baby may require 2D Echo if initial physical exam/VS abnormal GBS POSITIVE: Penicillin G per protocol, first dose at 0922 on 06/14/2017 Lakeisha Peralta MD R2 Jun 14, 2017 23:31
[2017-06-15] VITALS (31 sets, daily range): BP systolic 67–140; BP diastolic 40–91; PULSE 91–132; RESP 14–18; TEMP 97.9–98.6; O2SAT 97–99
--- NOTE | 2017-06-15 01:36 | PD.LABORPN ---
Subjective Subjective Patient feeling pelvic pressure and can now feel CTX in the lower back. No headaches, chest pain, shortness of breath. Epidural eased pain Objective Vital Signs Vital Signs Date Time Temp Pulse Resp B/P Pulse Ox O2 Delivery O2 Flow Rate FiO2 06/15/17 00:30 98 134/91 06/15/17 00:30 100 06/15/17 00:10 91 06/15/17 00:05 92 06/15/17 00:00 91 06/15/17 00:00 91 131/85 06/14/17 23:40 90 06/14/17 23:35 87 06/14/17 23:30 91 06/14/17 23:30 92 136/91 06/14/17 23:05 92 06/14/17 23:00 93 145/94 06/14/17 23:00 97 06/14/17 22:30 91 134/86 06/14/17 22:30 89 06/14/17 22:15 98.6 18 06/14/17 22:10 97 06/14/17 22:05 100 06/14/17 22:00 93 110/43 06/14/17 22:00 91 06/14/17 21:35 89 06/14/17 21:30 87 06/14/17 21:30 87 130/79 06/14/17 21:10 88 06/14/17 21:05 85 06/14/17 21:00 86 06/14/17 21:00 96 149/94 06/14/17 20:40 97 06/14/17 20:35 88 06/14/17 20:30 93 142/106 06/14/17 20:30 99 06/14/17 20:05 91 06/14/17 20:00 86 140/105 06/14/17 20:00 94 06/14/17 19:30 99 146/103 06/14/17 19:30 104 06/14/17 19:00 91 06/14/17 19:00 93 151/94 06/14/17 18:55 96 06/14/17 18:50 98 06/14/17 18:45 102 06/14/17 18:45 99.4 18 06/14/17 18:40 94 06/14/17 18:35 99 06/14/17 18:30 92 06/14/17 18:30 92 153/96 06/14/17 18:25 95 06/14/17 18:20 100 06/14/17 18:15 107 06/14/17 18:10 100 06/14/17 18:05 100 06/14/17 18:00 92 06/14/17 17:55 89 06/14/17 17:50 90 06/14/17 17:45 91 06/14/17 17:41 98.7 06/14/17 17:40 20 06/14/17 17:40 99 06/14/17 17:39 107 06/14/17 17:39 140/96 06/14/17 17:35 93 Objective Pelvic Exam: Cervix: soft Dilatation: 9cm Effacement: 90% Station: +1 Presentation: vertex Membranes: Ruptured Uterine Contractions: Q1-4minutes FHT's: Category: 1 Baseline: 150s Reactive: + to 160s Variability: Moderate Decels: Absent Assessment/Plan Problem List: (1) Group B streptococcal infection during (2) with 39 completed weeks gestation Assessment and Plan 33 year in labor, some cervical change. Will try to push at 9cm, assess progress with pushing. Continue monitoring and toco. Patient counseled that section is a possibility if labor dystocia occurs Elevated BPs: Improved. Now SBP 130s-140s. No headaches, blurry vision, chest pain, shortness of breath Possibly related to pain as pain now is controlled better. VS otherwise wnl including temp Uric acid mildly elevated to 7.4, platelets 128 - not diagnostic of pre-E Urine showing trace protein, reassuring Intrauterine : Expect vaginal delivery, Category 1 tracing reassuring AROM 1041 on 06/14/2017, light meconium stained CTX q1-4 min now, IUPC in place Epidural for pain Routine intrapartum care Monitor heart tones Pitocin now at 4iu/min, has been transitioned off and on over active phase given intermittent tachysystole with Pit at 8 Thickened nuchal fold: Last documented December 2016, did not get recommended f/u echo/US due to insurance issues Cell free DNA showed no increased risk of Trisomy 21, 18, 13 Patient declined amniocentesis for confirmation monitoring reassuring at this time, will monitor Baby may require 2D Echo if initial physical exam/VS abnormal GBS POSITIVE: Penicillin G per protocol, first dose at 0922 on 06/14/2017 Lakeisha Peralta MD R2 Jun 15, 2017 01:36
[2017-06-15] MEDS ORDERED: ZOLPIDEM TARTRATE 5 MG TAB PO PRN (03:45)
[2017-06-15] MEDS ORDERED: DOCUSATE SODIUM 50 MG/SENNA 8.6 MG TAB PO PRN (03:45)
[2017-06-15] MEDS ORDERED: ONDANSETRON ODT 4 MG TAB PO PRN (03:45)
[2017-06-15] MEDS ORDERED: OXYTOCIN 30 UNITS-500ML PREMIX 500 ML IV SCH (03:45)
[2017-06-15] MEDS ORDERED: ACETAMINOPHEN 325 MG TAB PO PRN (03:45)
[2017-06-15] MEDS ORDERED: WITCH HAZEL 50%/GLYCERIN 12.5% 40 PAD JAR TOPICAL PRN (03:45)
[2017-06-15] MEDS ORDERED: oxyCODONE/ACETAMINOPHEN 5 MG/325 MG TAB PO PRN ×2 (03:45)
[2017-06-15] MEDS ORDERED: ALUMINUM/MAGNESIUM/SIMETH 30 ML CUP PO PRN (03:45)
[2017-06-15] MEDS ORDERED: BENZOCAINE 20% TOPICAL SPRAY 60 ML CAN TOPICAL PRN (03:45)
[2017-06-15] MEDS ORDERED: SODIUM CHLORIDE 0.9% FLUSH 10 ML FLUSH IV FLUSH PRN (03:45)
--- NOTE | 2017-06-15 04:00 | PD.OB.DELI ---
Delivery Date: Jun 15, 2017 Anesthesia: Epidural Episiotomy: Midline Vaginal Delivery: Forceps Presentation: Transverse lie Nuchal Cord: None Delayed cord clamping (45 sec): Yes Infant: Male One Minute : 8 Five Minute : 9 Weight: 7lb 15oz Placenta: Spontaneous delivery, Intact Laceration: Episiotomy, 4 deg, Involving anal sphincter, Into rectum Repair: Vicryl interrupted, Vicryl running Estimated blood loss: 400cc Additional Information Patient is a 33 year old female who delivered by forceps delivery of live male infant intact. Forceps delivery indicated due to prolonged second stage ( characterized by >2hr pushing without cervical change) and maternal exhaustion. Terminal meconium noted at delivery of body. Suction of at perineum and handed over to nursery staff. Spontaneous delivery of placenta with 3- vessel cord within 5 minutes. Low forceps delivery from a +2 station Robin SOLITARIO applied without difficulty, delivery completed in the usual fashion baby handed to nursery staff for resuscitation midline episiotomy performed and extended to fourth degree. Fourth degree repair completed in layers starting with the rectum a running suture of 03 0 Vicryl, the internal anal sphincter running layer of 3-0 Vicryl, the external anal sphincter with Vicryl interrupted suture of 4 point repair. Remaining repair was just like a second-degree midline episiotomy with chromic running from the vaginal apex. This brought down of the perineal body a running suture to the apex near the rectum and then brought up subcutaneously the perineal body and tied at the introitus. Dr. Craig present and performed entire 4th degree laceration. Dr. Lakeisha Peralta and Dr. Cleveland Peralta present and assisted with delivery. Lakeisha Peralta MD R2 Jun 15, 2017 04:00
[2017-06-15] MEDS ORDERED: DIPHENOXYLATE/ATROPINE 2.5 MG/0.025 MG TAB PO SCH (06:00)
--- NOTE | 2017-06-15 08:26 | HHI.OB ---
Subjective Post Day: 0 Remarks day # 0. AFVSS overnight. Lochia minimal. Denies dysuria. No breast tenderness. She is feeding the baby via breast and formula. Has been drinking juices since delivery without nausea. No BM. On laxatives and Lomotil given 4th degree tear. Has not yet ambulated. Denies calf pain or shortness of breath. This morning she had an episode of dizziness upon standing which improved after drinking juice. Objective Vitals/I&O Vital Signs Date Time Temp Pulse Resp B/P Pulse Ox O2 Delivery O2 Flow Rate FiO2 06/15/17 08:07 119 105/73 06/15/17 07:14 98.2 18 06/15/17 07:13 102 110/79 06/15/17 06:30 18 06/15/17 06:15 110 99/72 06/15/17 06:15 18 06/15/17 06:00 132 102/65 06/15/17 05:47 18 06/15/17 05:45 115 18 103/67 06/15/17 05:30 100/68 06/15/17 05:15 108 84/51 06/15/17 05:15 18 06/15/17 05:07 125 69/44 06/15/17 05:05 128 67/40 06/15/17 05:04 124 70/43 06/15/17 04:00 97.9 100 18 06/15/17 04:00 110/76 06/15/17 02:01 105 140/90 06/15/17 00:30 98 134/91 06/15/17 00:30 100 06/15/17 00:10 91 06/15/17 00:05 92 06/15/17 00:00 91 06/15/17 00:00 91 131/85 06/14/17 23:40 90 06/14/17 23:35 87 06/14/17 23:30 91 06/14/17 23:30 92 136/91 06/14/17 23:05 92 06/14/17 23:00 93 145/94 06/14/17 23:00 97 06/14/17 22:30 91 134/86 06/14/17 22:30 89 06/14/17 22:15 98.6 18 06/14/17 22:10 97 06/14/17 22:05 100 06/14/17 22:00 93 110/43 17 22:00 91 17 21:35 89 1417 21:30 87 1417 21:30 87 130/79 17 21:10 88 17 21:05 85 06/14/17 21:00 86 06/14/17 21:00 96 149/94 06/14/17 20:40 97 06/14/17 20:35 88 17 20:30 93 142/106 06/14/17 20:30 99 06/14/17 20:05 91 06/14/17 20:00 86 140/105 06/14/17 20:00 94 06/14/17 19:30 99 146/103 06/14/17 19:30 104 06/14/17 19:00 91 06/14/17 19:00 93 151/94 06/14/17 18:55 96 06/14/17 18:50 98 06/14/17 18:45 102 17 18:45 99.4 18 17 18:40 94 17 18:35 99 17 18:30 92 17 18:30 92 153/96 17 18:25 95 17 18:20 100 17 18:15 107 06/14/17 18:10 100 06/14/17 18:05 100 06/14/17 18:00 92 17 17:55 89 17 17:50 90 17 17:45 91 1417 17:41 98.7 17 17:40 20 1417 17:40 99 1417 17:39 107 1417 17:39 140/96 17 17:35 93 17 17:30 98 1417 17:30 145/100 1417 17:30 99 1417 17:25 92 1417 17:20 94 1417 17:15 93 17 17:10 91 17 17:05 93 8/14/17 17:00 92 142/84 14/17 17:00 93 14/17 16:37 98.5 14/17 16:35 130/82 14/17 16:15 18 17 16:10 91 14/17 16:05 91 1417 16:01 85 143/97 14/17 16:00 95 1417 15:45 18 14/17 15:40 95 1417 15:35 83 14/17 15:30 84 114/80 14/17 15:30 94 1417 15:15 98.5 14 15:15 18 06/14/17 15:10 91 06/14/17 15:05 95 17 15:00 90 133/88 06/14/17 15:00 90 06/14/17 14:45 99 06/14/17 14:40 79 17 14:35 89 17 14:30 95 17 14:30 79 114/74 14/17 14:29 78 128/80 1417 14:28 18 1417 14:25 82 1417 14:20 84 1417 14:15 87 1417 14:10 90 1417 14:05 78 17 14:00 74 134/97 1417 14:00 75 1417 13:55 76 1417 13:50 76 1417 13:45 86 139/87 14/17 13:45 78 14/17 13:40 71 14/17 13:35 69 14/17 13:30 70 14/17 13:30 73 144/92 14/17 13:25 80 14/17 13:25 18 14/17 13:21 98.1 14/17 13:21 18 14/17 13:20 72 14/17 13:15 77 14/17 13:15 76 139/93 14/17 13:10 73 14/17 13:05 78 8/14/17 13:05 75 136/89 06/14/17 13:00 80 06/14/17 13:00 77 138/90 06/14/17 12:55 75 149/90 06/14/17 12:55 78 06/14/17 12:55 18 06/14/17 12:50 83 06/14/17 12:50 84 148/87 06/14/17 12:45 80 152/102 06/14/17 12:40 85 139/90 06/14/17 12:40 83 06/14/17 12:35 89 162/103 06/14/17 12:35 88 06/14/17 12:30 87 06/14/17 12:27 81 165/96 06/14/17 12:25 91 06/14/17 11:58 76 149/91 06/14/17 11:57 19 06/14/17 11:35 18 06/14/17 11:34 74 155/74 06/14/17 11:33 98.0 06/14/17 10:45 18 06/14/17 10:36 67 147/85 06/14/17 09:35 76 18 156/93 06/14/17 09:31 77 Objective Remarks GENERAL: Well-nourished, well-developed female. She is sitting up and looks tired. On standing she gets dizzy and requires ammonia and juice. CARDIOVASCULAR: Regular rate and rhythm without murmurs, gallops, or rubs. RESPIRATORY: Breath sounds equal bilaterally. No accessory muscle use. ABDOMEN/GI: Abdomen soft, non-tender. Fundus: Firm, non-tender at umbilicus. GENITOURINARY: Light to moderate bleeding. 4th degree laceration is not examined this morning. EXTREMITIES: No cyanosis or edema, non-tender, without signs of DVT. Medications and IVs Current Medications Medications (Trade) Dose Ordered Sig/Quentin Route Start Time Stop Time Status Last Admin (NS Flush) 2 ml BID IV FLUSH 06/15/17 09:00 Sodium Chloride 2 ml 2 ml UNSCH PRN IV FLUSH 06/15/17 03:45 (Pitocin 30 Units-NS 500 ml Premix) 500 ml @ 100 mls/hr CONTINUOUS IV 06/15/17 03:45 06/15/17 08:44 (Tylenol) 650 mg Q4H PRN PO 06/15/17 03:45 (Motrin) 600 mg Q6H PRN PO 06/15/17 03:45 (Percocet 5-325 Mg) 1 tab Q4H PRN PO 06/15/17 03:45 (Percocet 5-325 Mg) 2 tab Q4H PRN PO 06/15/17 03:45 (Americaine 20% Top Spr) 1 spray Q4H PRN TOPICAL 06/15/17 03:45 (Tucks Pads) 1 applic QID PRN TOPICAL 06/15/17 03:45 (Diana-Colace) 2 tab Q12H PRN PO 06/15/17 03:45 (Ambien) 5 mg HS PRN PO 06/15/17 03:45 (M-M-R Ii Inj) 0.5 ml ONCE ONCE SQ 06/15/17 16:00 06/15/17 16:01 (Boostrix Inj) 0.5 ml ONCE ONCE IM 06/15/17 16:00 06/15/17 16:01 (Mag-Al Plus Susp Liq) 15 ml Q8H PRN PO 06/15/17 03:45 Ondansetron HCl 4 mg 4 mg Q6H PRN PO 06/15/17 03:45 (Cleocin Inj/NS Inj) 106 ml @ 212 mls/hr Q8H IV 06/15/17 04:00 (Colace) 100 mg BID PO 06/15/17 09:00 (Lomotil Tab) 1 tab Q6HR PO 06/15/17 06:00 Assessment/Plan Problem List: (1) Group B streptococcal infection during (2) with 39 completed weeks gestation Assessment and Plan 33 y/o female who is PPD# 0 s/p operative forceps vaginal delivery resulting in 4th degree laceration, performed by Dr. Craig. Post- Care -Continue routine care. -Percocet and Motrin PRN pain. -Encouraged OOB. Advised pelvic rest for 6 wks. -Re: ctrl, she is undecided. -Anticipate discharge 1-2 days. 4th Degree Laceration, Repair -EBL 400cc -2/2 prolonged second stage of labor and maternal exhaustion -Episiotomy performed -Forceps vaginal delivery -Docusate and Lomotil scheduled -Clindamycin IV x 3 doses -Monitor closely for signs of repair dehiscence -Patient counseled regarding post-laceration pain expectations and pain -CBC ordered this morning, pending DW Dr. Craig Discharge Planning 1-2 days Lakeisha Peralta MD R2 Jun 15, 2017 08:26
[2017-06-15] MEDS ORDERED: SODIUM CHLORIDE 0.9% FLUSH 10 ML FLUSH IV FLUSH SCH (09:00)
[2017-06-15] MEDS: IBUPROFEN 600 MG TAB PO PRN (12:39)
[2017-06-15] MEDS: CLINDAMYCIN INJ 900 MG in SODIUM CHLORIDE 0.9% INJ 100 ML IV SCH ×2 (13:37→21:33)
[2017-06-15 14:53] LABS: AUTOMATED NEUTROPHIL # 25.2 TH/MM3 (1.8-7.7); BASOPHIL # 0.1 TH/MM3 (0-0.2); BASOPHIL % 0.2 % (0.0-2.0); EOSINOPHIL % 0.1 % (0.0-4.0); LYMPH % 9.1 % (9.0-44.0); LYMPHOCYTE # 2.7 TH/MM3 (1.0-4.8); MEAN CELL VOLUME 67.1 FL (80.0-100.0); MEAN CORPUSCULAR HEMOGLOBIN 20.5 PG (27.0-34.0); MEAN CORPUSCULAR HGB CONC 30.6 % (32.0-36.0); MONO % 4.4 % (0.0-8.0); NEUT % 86.2 % (16.0-70.0); PLATELET COUNT 105 TH/MM3 (150-450); RED BLOOD COUNT 3.11 MIL/MM3 (4.00-5.30); RED CELL DISTRIBUTION WIDTH 15.6 % (11.6-17.2); WHITE BLOOD COUNT 29.3 TH/MM3 (4.0-11.0)
[2017-06-15 14:59] LABS: HEMO FLAGS DIFF FINAL
[2017-06-15 15:00] LABS: HEMATOCRIT 20.8 % (35.0-46.0)
[2017-06-15] MEDS ORDERED: SODIUM CHLOR 0.9% 250 ML INJ 250 ML IV ONE ×2 (15:15→16:00)
--- NOTE | 2017-06-15 15:46 | HHI.PR ---
Addendum to Inpatient Note Addendum Reason: Additional Documentation Additional Information S Was contacted by nursing @ [phone] for a critical lab value. The H/H was read back as 6.4/20.8. Per EMr this patient is a postdelivery day 1 via vaginal with a 4th degree laceration during childbirth with an estimate blood loss of 400cc. Patient was seen and examined. She endorses weakness and dizziness when she stands up, mild thirst. No chest pain, leg pain or shortness of breath. Abdomen is still sore, and mildly crampy, but improved from last night. She notes decreased lochia. States she is not bleeding from anywhere else. O On examination there is a firm fundus palpated inferior to the umbilicus. Minor sanguineous fluid noted on vaginal pad. No gross active bleeding. Chest sounds are clear and equal bilaterally. Cardiac sounds are regular with a normal S1/S2. A/P Patient is a post vaginal deliver day 1 with 4 degree laceration and EBL of 400cc. Currently has symptomatic anemia. -Spoke with patient and explained the risks and benefits of transfusion. Patient expressed understanding and agreed to transfusion. -Ordered cross and match -Will receive 2 units PRBC -Monitor for change -H/H following transfusion d/w Dr. Landry Peralta, Dr. Musa (Sung Yoder MD R1) Collaborating MD Comments Discussed care and agree with transfusion to manage symptomatic blood loss anemia (Bhargavi Musa MD) Sung Yoder MD R1 Jun 15, 2017 15:45 Bhargavi Musa MD Jun 17, 2017 11:55
[2017-06-15] MEDS ORDERED: DIPHTH/TETANUS/ACEL PERTUSSIS (BOOSTER) 0.5 ML VIAL/PFS IM ONE (16:00)
[2017-06-15] MEDS ORDERED: MEASLES, MUMPS, RUBELLA VACCINE 0.5 ML VIAL SQ ONE (16:00)
[2017-06-16 00:25] VITALS: BP 115/73; PULSE 96; RESP 14; TEMP 98.3; O2SAT 99
[2017-06-16 02:15] VITALS: BP 127/83; PULSE 96; RESP 14; TEMP 98.9; O2SAT 98
[2017-06-16] MEDS: CLINDAMYCIN INJ 900 MG in SODIUM CHLORIDE 0.9% INJ 100 ML IV SCH (05:43)
[2017-06-16 07:14] LABS: AUTOMATED NEUTROPHIL # 24.6 TH/MM3 (1.8-7.7); BASOPHIL # 0.2 TH/MM3 (0-0.2); BASOPHIL % 0.6 % (0.0-2.0); EOSINOPHIL # 0.2 TH/MM3 (0-0.4); EOSINOPHIL % 0.7 % (0.0-4.0); HEMATOCRIT 24.8 % (35.0-46.0); LYMPH % 9.1 % (9.0-44.0); LYMPHOCYTE # 2.7 TH/MM3 (1.0-4.8); MEAN CELL VOLUME 71.9 FL (80.0-100.0); MEAN CORPUSCULAR HEMOGLOBIN 23.7 PG (27.0-34.0); MEAN CORPUSCULAR HGB CONC 32.9 % (32.0-36.0); MONO % 5.6 % (0.0-8.0); PLATELET COUNT 93 TH/MM3 (150-450); RED BLOOD COUNT 3.45 MIL/MM3 (4.00-5.30); RED CELL DISTRIBUTION WIDTH 22.1 % (11.6-17.2); WHITE BLOOD COUNT 29.3 TH/MM3 (4.0-11.0)
[2017-06-16 07:39] LABS: HEMO FLAGS AUTO DIFF
--- NOTE | 2017-06-16 07:40 | HHI.OB ---
Subjective Post Day: 1 Remarks Pt seen and examined this morning. day # 1 AFVSS overnight. Decreased lochia. Denies dysuria. No breast tenderness. She is feeding the baby via breast and bottle. Appetite good. No nausea or vomiting. Patient has not yet had a bowel movement. + flatus. Ambulating well. Denies calf pain or shortness of breath, no lower extremity pain. Pt reports feeling significantly improved after the blood transfusion. Otherwise, she is doing well this morning and has no other concerns. Objective Vitals/I&O Vital Signs Date Time Temp Pulse Resp B/P Pulse Ox O2 Delivery O2 Flow Rate FiO2 06/16/17 02:15 96 14 127/83 06/16/17 02:15 98.9 98 06/16/17 02:15 98.9 96 14 127/83 98 06/16/17 00:25 98.3 14 99 06/16/17 00:25 96 115/73 06/15/17 23:55 98.6 98 06/15/17 23:55 98 06/15/17 23:55 16 06/15/17 23:55 98.6 06/15/17 23:55 98 16 120/83 98 06/15/17 23:40 95 16 06/15/17 23:40 120/83 06/15/17 23:40 98.5 06/15/17 23:40 14 06/15/17 23:40 125/80 06/15/17 23:40 97 06/15/17 23:40 98.6 98 16 98 06/15/17 23:35 98.5 95 14 125/80 97 06/15/17 20:45 98.3 101 16 124/81 99 06/15/17 20:45 98.3 16 99 06/15/17 20:45 101 124/81 06/15/17 19:24 98.1 95 16 111/69 99 06/15/17 19:21 98.1 95 16 111/69 99 06/15/17 18:30 97 16 99 06/15/17 18:16 105/67 06/15/17 18:06 98.3 06/15/17 18:06 16 105/67 99 06/15/17 18:06 98.3 97 16 105/67 99 06/15/17 17:56 101 111/74 06/15/17 17:56 98.3 16 99 06/15/17 17:49 98.3 103 16 111/74 98 06/15/17 08:45 98.1 102 16 107/81 06/15/17 08:07 119 105/73 Objective Remarks GENERAL: Well-nourished, well-developed female. She is sitting up and looks tired. On standing she gets dizzy and requires ammonia and juice. CARDIOVASCULAR: Regular rate and rhythm without murmurs, gallops, or rubs. RESPIRATORY: Breath sounds equal bilaterally. No accessory muscle use. ABDOMEN/GI: Abdomen soft, non-tender. Fundus: Firm, non-tender at umbilicus. GENITOURINARY: Light to moderate bleeding. 4th degree laceration is not examined this morning. EXTREMITIES: No cyanosis or edema, non-tender, without signs of DVT. Medications and IVs Current Medications Medications (Trade) Dose Ordered Sig/Quentin Route Start Time Stop Time Status Last Admin (NS Flush) 2 ml BID IV FLUSH 06/15/17 09:00 (NS Flush) 2 ml UNSCH PRN IV FLUSH 06/15/17 03:45 (Tylenol) 650 mg Q4H PRN PO 06/15/17 03:45 (Motrin) 600 mg Q6H PRN PO 06/15/17 03:45 06/15/17 12:39 (Percocet 5-325 Mg) 1 tab Q4H PRN PO 06/15/17 03:45 06/15/17 12:38 (Percocet 5-325 Mg) 2 tab Q4H PRN PO 06/15/17 03:45 (Americaine 20% Top Spr) 1 spray Q4H PRN TOPICAL 06/15/17 03:45 06/15/17 12:38 (Tucks Pads) 1 applic QID PRN TOPICAL 06/15/17 03:45 06/15/17 12:38 (Diana-Colace) 2 tab Q12H PRN PO 06/15/17 03:45 (Ambien) 5 mg HS PRN PO 06/15/17 03:45 (Mag-Al Plus Susp Liq) 15 ml Q8H PRN PO 06/15/17 03:45 (Zofran Odt) 4 mg Q6H PRN PO 06/15/17 03:45 (Colace) 100 mg BID PO 06/15/17 09:00 Diphenoxylate HCl/ Atropine 1 tab 1 tab Q6HR PO 06/15/17 06:00 (NS 250 ml Inj) 250 ml @ 15 mls/hr ONCE ONCE IV 06/15/17 16:00 06/16/17 08:39 Assessment/Plan Problem List: (1) Group B streptococcal infection during (2) with 39 completed weeks gestation Assessment and Plan 33 y/o female who is PPD# 1 s/p operative forceps vaginal delivery resulting in 4th degree laceration. Post- Care -Continue routine care. -Percocet and Motrin PRN pain. -Encouraged OOB. Advised pelvic rest for 6 wks. -Re: ctrl, she is undecided. -Anticipate discharge tomorrow 4th Degree Laceration, Repair -EBL 400cc -2/2 prolonged second stage of labor and maternal exhaustion -Episiotomy performed -Forceps vaginal delivery -Docusate and Lomotil scheduled -Clindamycin IV x 3 doses completed -Monitor closely for signs of repair dehiscence -Patient counseled regarding post-laceration pain expectations and pain Acute blood loss Hemoglobin after delivery low at 6.4 Patient status post transfusion of 2 units packed red blood cells Hemoglobin today 8.2, patient reports feeling significantly improved after transfusion RICHARD Musa Discharge Planning Tomorrow Cleveland Peralta MD R3 Jun 16, 2017 07:40
[2017-06-16 08:35] VITALS: BP 129/87; PULSE 94; RESP 16; TEMP 98.9
[2017-06-16] MEDS: DOCUSATE SODIUM 100 MG CAP PO SCH ×2 (08:44→21:41)
[2017-06-16] MEDS: IBUPROFEN 600 MG TAB PO PRN (08:45)
[2017-06-16 08:48] LABS: PLATELET ESTIMATE SMEAR LOW (NORMAL); PLATELET MORPHOLOGY ENLARGED (NORMAL)
[2017-06-16 08:49] LABS: KERATOCYTES OCC (NORMAL); OVALOCYTES 1+ (NORMAL); SCAN/DIFF AUTO DIFF CONFIRMED
[2017-06-16 19:42] VITALS: BP 142/88; PULSE 90; RESP 16; TEMP 97.7
[2017-06-17 08:30] VITALS: PULSE 72; RESP 16; TEMP 98
[2017-06-17 09:00] VITALS: BP 145/92
[2017-06-17 09:07] LABS: HEMATOCRIT 25.7 % (35.0-46.0); MEAN CELL VOLUME 72.1 FL (80.0-100.0); MEAN CORPUSCULAR HEMOGLOBIN 23.7 PG (27.0-34.0); MEAN CORPUSCULAR HGB CONC 32.9 % (32.0-36.0); PLATELET COUNT 109 TH/MM3 (150-450); RED BLOOD COUNT 3.57 MIL/MM3 (4.00-5.30); RED CELL DISTRIBUTION WIDTH 21.9 % (11.6-17.2)
[2017-06-17] MEDS: IBUPROFEN 600 MG TAB PO PRN (09:24)
[2017-06-17] MEDS: DOCUSATE SODIUM 100 MG CAP PO SCH (09:24)
[2017-06-17] MEDS ORDERED: FERR325C PO (09:39)
[2017-06-17] MEDS ORDERED: PERI8.6T PO (09:39)
[2017-06-17] MEDS ORDERED: IBUP-232 PO (09:39)
[2017-06-17] MEDS ORDERED: OXYC1TAB63 PO (09:39)
--- NOTE | 2017-06-17 09:40 | HHI.DCPOC ---
Discharge Care Plan Report Symptoms to Your Doctor -Temperature above 100.5 degrees -Redness, of incision or excessive or foul smelling drainage -Unusual pain or calf pain -Increased vaginal bleeding -Painful or difficulty urinating -Feelings of extreme sadness or anxiety after 2 weeks Goals to Promote Your Health * To prevent worsening of your condition and complications * To maintain your health at the optimal level Directions to Meet Your Goals Take your medications as prescribed Follow your dietary instruction Follow activity as directed Ensure plenty of rest for recovery Drink fluids for hydration Keep your appointments as scheduled Take your immunizations and boosters as scheduled If your symptoms worsen call your PCP, if no PCP go to Urgent Care Center or Emergency Room Smoking is Dangerous to Your Health. Avoid second hand smoke Call the 24-hour crisis hotline for domestic abuse at Sung Yoder MD R1 Jun 17, 2017 09:39
--- NOTE | 2017-06-17 09:44 | HHI.OB ---
Subjective Post Day: 3 Remarks day # 3 AFVSS overnight. Decreased lochia. Denies dysuria. No breast tenderness. Appetite good. No nausea or vomiting. Ambulating well. Denies calf pain or shortness of breath. No lightheadedness, dizziness, weakness Otherwise, she is doing well this morning and has no other complaints. Objective Vitals/I&O Vital Signs Date Time Temp Pulse Resp B/P Pulse Ox O2 Delivery O2 Flow Rate FiO2 06/17/17 09:00 145/92 06/17/17 08:30 72 16 06/17/17 08:30 98.0 06/16/17 19:42 97.7 90 16 142/88 Objective Remarks GENERAL: Well-nourished, well-developed female. She is sitting up and looks tired. On standing she gets dizzy and requires ammonia and juice. CARDIOVASCULAR: Regular rate and rhythm without murmurs, gallops, or rubs. RESPIRATORY: Breath sounds equal bilaterally. No accessory muscle use. ABDOMEN/GI: Abdomen soft, non-tender. Fundus: Firm, non-tender at umbilicus. GENITOURINARY: Light to moderate bleeding. 4th degree laceration examined, minimal edema. No erythema, purulent discharge. EXTREMITIES: No cyanosis or edema, non-tender, without signs of DVT. Medications and IVs Current Medications Medications (Trade) Dose Ordered Sig/Quentin Route Start Time Stop Time Status Last Admin (NS Flush) 2 ml BID IV FLUSH 06/15/17 09:00 (NS Flush) 2 ml UNSCH PRN IV FLUSH 06/15/17 03:45 (Tylenol) 650 mg Q4H PRN PO 06/15/17 03:45 06/16/17 08:45 (Motrin) 600 mg Q6H PRN PO 06/15/17 03:45 06/17/17 09:24 (Percocet 5-325 Mg) 1 tab Q4H PRN PO 06/15/17 03:45 06/15/17 12:38 (Percocet 5-325 Mg) 2 tab Q4H PRN PO 06/15/17 03:45 (Americaine 20% Top Spr) 1 spray Q4H PRN TOPICAL 06/15/17 03:45 06/15/17 12:38 (Tucks Pads) 1 applic QID PRN TOPICAL 06/15/17 03:45 06/15/17 12:38 (Diana-Colace) 2 tab Q12H PRN PO 06/15/17 03:45 (Ambien) 5 mg HS PRN PO 06/15/17 03:45 (Mag-Al Plus Susp Liq) 15 ml Q8H PRN PO 06/15/17 03:45 (Zofran Odt) 4 mg Q6H PRN PO 06/15/17 03:45 (Colace) 100 mg BID PO 06/15/17 09:00 06/17/17 09:24 (Lomotil Tab) 1 tab Q6HR PO 06/15/17 06:00 Assessment/Plan Problem List: (1) Group B streptococcal infection during (2) with 39 completed weeks gestation Assessment and Plan 33 y/o female who is PPD# 3 s/p operative forceps vaginal delivery resulting in 4th degree laceration. Post- Care -Continue routine care. -Percocet and Motrin PRN pain. -Encouraged OOB. Advised pelvic rest for 6 wks. -Re: ctrl, she is undecided. -Discharge today 4th Degree Laceration, Repair -No current signs of infection -EBL 400cc -2/2 prolonged second stage of labor and maternal exhaustion -Episiotomy performed -Forceps vaginal delivery -Docusate and Lomotil scheduled -Clindamycin IV x 3 doses completed -Monitor for signs of repair dehiscence -Patient counseled regarding post-laceration pain expectations and pain Acute blood loss Hemoglobin after delivery low at 6.4 Patient status post transfusion of 2 units packed red blood cells Hemoglobin yesterday 8.2, patient reports feeling significantly improved after transfusion No current signs of symptomatic anemia WDW Dr. Craig, Dr. Caraballo Discharge Planning Tomorrow Sung Yoder MD R1 Jun 17, 2017 09:44
== END 2017-06-17 10:57 | disposition home or self-care (01) | DRG 775 ==
LOC: HOBED 07:59 → H2EB 09:08 → H1EA 06-15 08:16
PROVIDERS: ADMIT Obstetrics & Gynecology Obstetrics; ATTEND Obstetrics & Gynecology Obstetrics
PROC: 3E0E37Z Introduction of Electrolytic and Water Balance Substance into Products of Conception, Percutaneous Approach (ICD-10-PCS; 2017-06-14)
PROC: 10D07Z3 Extraction of Products of Conception, Low Forceps, Via Natural or Artificial Opening (ICD-10-PCS; principal; 2017-06-15)
PROC: 0DQP0ZZ Repair Rectum, Open Approach (ICD-10-PCS; 2017-06-15)
PROC: 30233N1 Transfusion of Nonautologous Red Blood Cells into Peripheral Vein, Percutaneous Approach (ICD-10-PCS; 2017-06-15)
PROC: 0W8NXZZ Division of Female Perineum, External Approach (ICD-10-PCS; 2017-06-15)
DX: O99.824 Streptococcus B carrier state complicating childbirth (principal); D62 Acute posthemorrhagic anemia; O63.1 Prolonged second stage (of labor); O77.0 Labor and delivery complicated by meconium in amniotic fluid; Z37.0 Single live birth; Z3A.39 39 weeks gestation of pregnancy; O70.3 Fourth degree perineal laceration during delivery; O75.81 Maternal exhaustion complicating labor and delivery; O32.2XX0 Maternal care for transverse and oblique lie, not applicable or unspecified; O90.81 Anemia of the puerperium
CPT/HCPCS: 36430; 59025; 80053; 81001; 84550; 85025; 85027; 86850; 86900; 86901; 86920; J2540; J2590; J3010; J7120; P9016